=== PATIENT | male | born 1945 | race Caucasian/White ===

== ENCOUNTER 2024-09-26 08:50 | Outpatient (RCR) | payer MEDICARE, SELFPAY | END 2024-09-26 23:59 | disposition home or self-care (01) | LOC: RPT 08:50 | PROVIDERS: ATTENDING PHYSICIAN Family Medicine Geriatric Medicine; FAMILY PHYSICIAN Family Medicine | DX: N50.9 Disorder of male genital organs, unspecified (principal); K59.00 Constipation, unspecified; R32 Unspecified urinary incontinence; K62.89 Other specified diseases of anus and rectum | CPT/HCPCS: 97110; 97112; 97140; 97161; 97530 ==

== ENCOUNTER 2024-10-24 16:25 | Outpatient (RCR) | payer MEDICARE, SELFPAY | END 2024-10-24 23:59 | disposition home or self-care (01) | LOC: RPT 16:25 | PROVIDERS: ATTENDING PHYSICIAN Family Medicine Geriatric Medicine; FAMILY PHYSICIAN Family Medicine | DX: N50.9 Disorder of male genital organs, unspecified (principal); K59.00 Constipation, unspecified; R32 Unspecified urinary incontinence; K62.89 Other specified diseases of anus and rectum | CPT/HCPCS: 97110; 97112; 97140 ==

== ENCOUNTER 2024-11-26 13:38 | Outpatient (RCR) | payer MEDICARE, SELFPAY | END 2024-11-26 23:59 | disposition home or self-care (01) | LOC: RPT 13:38 | PROVIDERS: ATTENDING PHYSICIAN Family Medicine Geriatric Medicine; FAMILY PHYSICIAN Family Medicine | DX: D07.5 Carcinoma in situ of prostate (principal); N50.9 Disorder of male genital organs, unspecified (principal); K59.00 Constipation, unspecified; Z73.6 Limitation of activities due to disability; R32 Unspecified urinary incontinence; K62.89 Other specified diseases of anus and rectum | CPT/HCPCS: 97110; 97140; 97530 ==

== ENCOUNTER 2024-12-26 14:39 | Outpatient (RCR) | payer MEDICARE, SELFPAY | END 2024-12-26 23:59 | disposition home or self-care (01) | LOC: RPT 14:39 | PROVIDERS: ATTENDING PHYSICIAN Family Medicine Geriatric Medicine; FAMILY PHYSICIAN Family Medicine | DX: D07.5 Carcinoma in situ of prostate (principal); Z73.6 Limitation of activities due to disability; N50.9 Disorder of male genital organs, unspecified; K59.00 Constipation, unspecified; R32 Unspecified urinary incontinence; K62.89 Other specified diseases of anus and rectum | CPT/HCPCS: 97110; 97140 ==

== ENCOUNTER 2025-03-12 18:18 | Emergency (ER) | payer MEDICARE, SELFPAY ==
[2025-03-12 18:22] VITALS: BP 153/68
--- NOTE | 2025-03-12 19:50 | ED.GENMED ---
History of Present Illness
General
Chief Complaint: Skin Surface Trauma
Time Seen by Provider: 03/12/25 19:50
History of Present Illness
History of Present Illness:
FOCUSED PAST MEDICAL HISTORY
- GERD, prostate cancer
REVIEW OF OLD RECORDS
- I reviewed records, the patient has been getting physical therapy from the summer
Note:
CHIEF COMPLAINT(S)
Laceration of the finger with suspected bone involvement following an injury with a mitresaw.
HISTORY OF PRESENT ILLNESS
The patient is a 79-year-old male who presented to the emergency department after sustaining a laceration to his finger while using a mitresaw at home. He reports that the injury included missing skin and has affected the distal phalanx with a
suspected jess of the bone. 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 There was bleeding at the site, but no mention of excessive blood loss.
The emergency department evaluation included an X-ray, which confirmed the involvement of the bone. The patient was noted to be hypothermic and expressed changes in mental status, possibly due to the incident. The patient received local anesthesia
with a small needle to numb the finger for treatment, which included the placement of three stitches to close the wound and plans for applying a splint and dressing.
PAST MEDICAL AND SURIGICAL HISTORY
History of spinal infection.
MEDICATIONS
Avastin (noted but unclear if correct).
PHYSICAL EXAM
General: Alert, no acute distress.
Skin: Warm, dry.
Head: Normocephalic, atraumatic.
Neck: Supple, trachea midline.
Eye Ears, nose, mouth, and throat: Oral mucosa moist.
Cardiovascular: Normal peripheral perfusion, No edema.
Respiratory: Respirations are non-labored.
Gastrointestinal: Abdomen nondistended.
Back: Normal range of motion, Normal alignment.
Musculoskeletal: There is a laceration with soft tissue loss and skin loss at the distal aspect of the third digit more so on the dorsal radial aspect, there is decreased active range of motion due to pain
Neurological: Alert and oriented to person, place, time, and situation, No focal neurological deficit observed.
Psychiatric: Cooperative, appropriate mood & affect.
PROBLEM LIST
Acute:
- Laceration of the finger with bone involvement.
- Potential for infection due to compromised skin integrity.
CHRONIC
- History of spinal infection.
PLAN
- Administer tetanus vaccine if not up-to-date.
- Prescribe antibiotics likely cefalexin, considering the cutaneous and bone involvement, unless contraindicated by allergies.
- Apply a splint and dressing to the wound and ensure proper wound care instructions are provided.
- Schedule a follow-up appointment to monitor the healing and functionality of the finger.
- Advise against activities that may open the wound, such as strenuous hand use, until further healing is confirmed.
DIFFERENTIAL DIAGNOSIS
The Differential Diagnosis includes, in no particular order and is not limited to:
1. Laceration
2. Open fracture
3. Penetrating injury
4. Hematoma formation
5. Flexor tendon injury
6. Peripheral nerve injury
7. Deep wound infection risk
8. Crush injury
9. Subungual hematoma
10. Vasospasm or compromised circulation secondary to injury.
Disposition:
SUMMARY OF ENCOUNTER
The patient, a 79-year-old male, came to the emergency department after sustaining a laceration to his finger with possible bone involvement from a mitresaw accident. There was significant soft tissue and skin loss, and the wound demonstrated
considerable tissue damage. An X-ray confirmed bone involvement, and a splint was applied due to a fracture at the middle phalanx. The patient received local anesthesia, and three stitches were placed to approximate the wound edges more closely,
although extensive tissue loss remains.
PLAN
- Splint and dress the wound to support healing.
- Prescribe antibiotics, likely cephalexin, unless contraindicated by allergies, due to the risk of infection from bone and skin involvement.
- Administer tetanus vaccine if not up-to-date.
- Provide the patient with wound care instructions, advising against activities that could exacerbate the injury.
- Schedule a follow-up appointment with orthopedic services to monitor healing and assess further management of the finger injury.
INDEPENDENT REVIEW OF LABS AND INTERPRETATION OF TESTS
My independent interpretation of the X-ray confirms a fracture at the middle phalanx with involvement of the bone.
PROCEDURES
- Application of local anesthesia to numb the finger.
- Placement of three stitches to close the wound.
- Splint application to immobilize the affected finger.
PATIENT EDUCATION AND COUNSELING
- Instructed the patient on proper wound care techniques.
- Advised against strenuous hand activities that may disrupt healing.
- Discussed signs of infection to monitor and report.
FOLLOW-UP INSTRUCTIONS
- The patient is to follow up with orthopedic services for further evaluation and management of the finger fracture and wound healing.
MEDICATION RECONCILIATION
- Antibiotics prescribed: Likely cephalexin pending determination of allergies.
- Tetanus booster if not current.
MEDICAL DECISION MAKING
- Complexity of Data Reviewed: Chronic conditions affecting care include a history of spinal infection. Differential diagnosis includes potential for deep wound infection, open fracture, peripheral nerve injury, and hematoma formation.
- Data:
Category 1: The X-ray was ordered and independently reviewed, confirming a fracture.
Category 3: Consideration of management with orthopedic follow-up given the fracture and tissue loss.
-Risk: Prescription medication was prescribed in the form of antibiotics. Given the risk of infection due to the fracture and tissue loss, outpatient management was determined to be suitable with close follow-up by orthopedic services.
DIAGNOSIS
- Laceration of finger with bone involvement: ICD-10 S61.219A
- Open fracture of distal phalanx of finger: ICD-10 S62.92XA
- Potential risk of infection due to open wound: ICD-10 T81.4XXA
RADIOLOGY
- I personally reviewed x-ray and agree with radiologist interpretation there is a small avulsion fracture at the middle phalanx
Past History
Past History
ED Past Medical History: GERD, Hypercholesterolemia and Other ( BPH)
ED Past Surgical History: Orthopedic (R hip replaced 'years ago' )
Social History
Tobacco: Non-smoker
Personal:
Living: with family
Employment: Retired
Phy Exam
Physical Exam
Physical Exam:
See HPI
Course
Orders/Labs/Results
Orders:
Orders
03/12/25 18:23
Finger(s)/Thumb 2 View Lt [CR Finger(s)/thumb Min 2 Vw Lt] Urgent
Comment:
Reason For Exam: circular saw injury
Indicate Which Finger:: Middle Finger
03/12/25 19:55
Tetanus/Diphth/Acelpertussis [Adacel] 0.5 ml .ROUTE .STK-MED ONE
03/12/25 19:56
Tetanus/Diphth/Acelpertussis [Adacel] 0.5 ml IM .ONCE ONE
03/12/25 20:06
Cephalexin Monohydrate [Keflex] 500 mg PO NOW STA
Vital Signs
Initial and Last Documented VS:
Initial Vital Signs
Temp Pulse Resp BP Pulse Ox
36.5 C 87 17 153/68 99
03/12/25 18:22 03/12/25 18:22 03/12/25 18:22 03/12/25 18:22 03/12/25 18:22
Last Documented Vital Signs
Temp Pulse Resp BP Pulse Ox
36.5 C 87 17 153/68 99
03/12/25 18:22 03/12/25 18:22 03/12/25 18:22 03/12/25 18:22 03/12/25 19:50
Procedures
Laceration Closure
Left Distal Dorsal Third Finger:
Description of Wound Edges: ragged
Preparation: cleaned with saline and other (Chlorhexidine)
Anesthesia: 1% Lidocaine and Digital-Regional
Revision/Debridement: minor revision (Removed small flap of skin which is nonviable)
Wound exploration: explored to base- no FB
Type of Closure: single layer closure
Skin Closure Material: 4-0 prolene
Number of sutures: 3
*Pulse Oximetry
SaO2: 99
Oxygen Mode of Delivery: Room air
Patient hypoxic: no
*Critical Care Note
Total Time (30-74mins, 75-104mins- exclusive of procedures): Not Applicable
ED Attending Note
-
Portions of this chart may have been created with voice recognition software.� Occasional wrong word or��sound alike� substitutions may have occurred due to the inherent limitations of voice recognition software.
Discharge Plan
Departure
Patient Disposition: Home (Routine Discharge)
Date of Disposition: 03/12/25
Time of Disposition: 20:07
Patient with high blood pressure during this ER visit?: Yes
Discharge Problem:
Finger laceration
Instructions: Laceration Repair With Stitches (DC), BLOOD PRESSURE
Prescriptions:
New
cephalexin 500 mg capsule
500 mg PO TID Qty: 15 0RF
No Action
atorvastatin 20 MG tablet
20 mg PO HS
hydrocodone-acetaminophen 1 TABLET tablet
1 tab PO Q6HPRN PRN (Reason: severe pain)
acetaminophen-codeine 1 TABLET tablet
1 tab PO Q6HPRN PRN (Reason: mild/moderate pain)
aspirin 81 MG tablet,delayed release (DR/EC)
81 mg PO DAILY
tramadol 50 MG tablet
50 mg PO Q6HPRN PRN (Reason: pain)
Patient Comments:
06/15/20 Patient has been taking around the clock
famotidine 20 MG tablet
20 mg PO HS
ascorbic acid (vitamin C) [Vitamin C] 500 MG tablet
1,000 mg PO DAILY
tamsulosin 0.4 MG capsule
0.8 mg PO HS
amitriptyline 10 MG tablet
20 mg PO HS
docusate sodium 100 MG capsule
100 mg PO DAILY
gabapentin 100 MG capsule
100 mg PO DAILY
metoprolol succinate 25 MG tablet extended release 24 hr
25 mg PO DAILY
lisinopril 2.5 MG tablet
2.5 mg PO DAILY
solifenacin [Vesicare] 10 MG tablet
10 mg PO HS
multivitamin with folic acid [Tab-A-Gab] 1 TABLET tablet
1 tab PO DAILY
gabapentin 100 MG capsule
200 mg PO HS
cefazolin 2 GRAMS/10 ML recon soln
2 grams IV Q8H 0RF
prednisone 10 mg Tablet
See Rx Instructions .ROUTE .COMPLEX Qty: 30 0RF
Rx Instructions:
Take By Mouth:
40 mg daily x3 days, 30 mg daily x3 days,
20 mg daily x3 days, 10 mg daily x3 days.
Referrals:
Danica Philippe DO [Family Provider, Family Practice]
Ayo Oneill MD [Active, Orthopedics]
Activity Restrictions/Additional Instructions:
The x-ra shows a small avulsion fracture of the volar aspect of the base of the middle phalanx. I recommend that you use a splint and also follow-up with Dr. Oneill. The stitches should be removed in approximately 7 to 10 days by either .
Nino or your own primary care doctor. Change dressings daily.
Interventions
Interventions:
*Risk Screen - Suicide Last Done: 03/12/25 18:22
*General Assessment Last Done: 03/12/25 18:22
*Neglect/Abuse Screening Last Done: 03/12/25 18:22
*ED COVID-19 Vaccine History Last Done: 03/12/25 18:22
*ED Influenza Vaccine History Last Done: 03/12/25 18:22
ED-Skin Assessment Last Done: 03/12/25 19:14
Discharge Date and Time
Print Language: SAMI
[2025-03-12] MEDS: ADACEL 0.5 ML IM (19:56)
[2025-03-12] MEDS: KEFLEX 500 MG PO (20:23)
== END 2025-03-12 20:55 | disposition home or self-care (01) ==
LOC: EMR 18:18
PROVIDERS: EMERGENCY PHYSICIAN Emergency Medicine; FAMILY PHYSICIAN Family Medicine
DX: S61.213A Laceration without foreign body of left middle finger without damage to nail, initial encounter (principal); S62.623A Displaced fracture of middle phalanx of left middle finger, initial encounter for closed fracture; E78.00 Pure hypercholesterolemia, unspecified; F41.9 Anxiety disorder, unspecified; K21.9 Gastro-esophageal reflux disease without esophagitis; N40.0 Benign prostatic hyperplasia without lower urinary tract symptoms; Z23 Encounter for immunization; Z96.641 Presence of right artificial hip joint; W31.2XXA Contact with powered woodworking and forming machines, initial encounter; Y92.009 Unspecified place in unspecified non-institutional (private) residence as the place of occurrence of the external cause
CPT/HCPCS: 99283; 12001; 90471; 73140; 90715